=== PATIENT | male | born 2000 | race Two or more races ===

== ENCOUNTER 2018-08-17 18:26 | Emergency (ER) | payer SELFPAY ==
[~2018-08-17] VITALS: Ht 172.7 cm; Wt 83.6 kg
[2018-08-17] MEDS ORDERED: FAMOTIDINE 20 MG TABLET PO ONE (19:30)
[2018-08-17] MEDS ORDERED: EPINEPHRINE 1 MG/ML, 1ML IM ONE (19:30)
[2018-08-17] MEDS ORDERED: EPINEPHRINE 1 MG/ML, 1ML ONE (19:31)
[2018-08-17] MEDS ORDERED: hydrOXyzine 50MG TABLET ONE (19:32)
[2018-08-17] MEDS ORDERED: FAMOTIDINE 20 MG TABLET ONE (19:32)
[2018-08-17 20:44] VITALS: BP 136/76
== END 2018-08-17 21:20 | disposition home or self-care (01) ==
LOC: ED 21:20
DX: T78.40XA Allergy, unspecified, initial encounter (principal); T78.3XXA Angioneurotic edema, initial encounter; X58.XXXA Exposure to other specified factors, initial encounter
CPT/HCPCS: 96372; 99284; J0171; J7512; Q0177